=== PATIENT | male | born 1960 ===

== ENCOUNTER 2025-05-13 16:49 | Outpatient (CLI) | payer OTHER, SELFPAY ==
--- NOTE | ~2025-05-13 | CT_ITS ---
EXAMINATION: CT brain wo con DATE: 05/13/2025 17:05 INDICATION: Follow-up hemorrhagic conversion TECHNIQUE: Computed tomography (CT) of the head was performed without intravenous contrast. The dose-length product was 756.67 mGy-cm. Automated exposure control and iterative reconstruction technique were employed. COMPARISON: None FINDINGS: There is a large area of hypodensity with a geographic appearance in the right hemisphere particularly the right parietal and temporal lobes, most likely acute/subacute infarction. There is associated mass effect with midline shift measuring approximately 2 mm. There are multiple focal areas of hyperdensity consistent with associated parenchymal hemorrhage. No prior studies are available for comparison to assess for change. No ventriculomegaly. Basilar cisterns are patent. Paranasal sinuses and mastoids are pneumatized. No depressed skull fractures. IMPRESSION: 1. Large geographic area of hypodensity in the right middle cerebral artery distribution, most likely acute/subacute infarction with associated multifocal parenchymal hemorrhage. Mass effect on the surrounding parenchyma due to vasogenic edema with midline shift to the left measuring [address] Jesus Leach discussed with Monik Lara from the rehabilitation Center at [facility] at 05/13/2025 17:30 GLOBAL CLINICAL LEADER. Reviewed, dictated and finalized at location I. [place] CLINICAL LEADER IMPRESSION: 1. Large geographic area of hypodensity in the right middle cerebral artery dis tribution, most likely acute/subacute infarction with associated multifocal par enchymal hemorrhage. Mass effect on the surrounding parenchyma due to vasogenic edema with midline shift to the left measuring [address] Jesus Leach discussed with Monik Lara from the rehabilitation Center at [facility] at 05/13/2025 17:30 GLOBAL CLINICAL LEADER.
--- OUTSIDE RECORDS SUMMARY | 2025-05-13 16:52 | XMS_ITS | Clinical Summary ---
Author Organization [facility] Address [address] [place] [address] Care Team Providers Care Color Room Attendant Name Role Phone MekhiDavid Sara Primary Care Provider [phone] Source Comments [facility],non-owned Affiliates and Associated Physician Practices is amultiple site organization consisting of ambulatory clinics and hospital sitesin [place], [place], [place] and [place]. This disclosure is being madepursuant to the Care Everywhere program and may not contain all information available regarding this patient. Last updated 18.[facility] Allergies No known active allergies Medications * Be aware that medications may not be up to date on this document. Alwaysverify current medications with the patient. lisinopril-hydr oCHLOROthiazide (Prinzide; Zestoretic) 10-12.5 MG tablet Take 1 (one) tablet by mouth once daily Active aspirin (Aspirin) 81 MG chew tablet Take 1 (one) tablet by mouth once daily (chew and swallow) 05/02/2025 Active atorvastatin (Lipitor) 40 MG tablet Take 1 (one) tablet by mouth at bedtime 05/02/2025 Active folic acid (Folvite) 1 MG tablet Take 1 (one) tablet by mouth once daily 05/02/2025 Active nicotine (Nicoderm CQ) 14 MG/24HR patchIndication s:Acute ischemic stroke (HCC) Apply 1 (one) patch to skin once daily 05/03/2025 Active multiple vitamins with minerals tablet Take 1 (one) tablet by mouth once daily 05/02/2025 Active thiamine (Vitamin B-1) 100 MG tablet Take 1 (one) tablet by mouth once daily 05/02/2025 Active Active Problems Problem Noted Date Diagnosed Date Fall against object 05/01/2025 Acute ischemic stroke 04/27/2025 Encounters Date Type Department Care Team Description 05/11/2025 12:15 PM HEALTH PROFESSOR Clinical Support [facility] [address], [address] [place] [address] Acute ischemic stroke (HCC) ; Bradycardia; Encounter for loop recorder check 05/02/2025 12:00 PM HEALTH PROFESSOR - 05/02/2025 1:00 PM HEALTH PROFESSOR Surgery Counts include 234 beds at the [facility] - Cardiac Wireless Team Member [address] [place] [address] Taiwo Salmon MD Loop Recorder Implant 05/02/2025 Orders Only [facility] [address], [address] [place] [address] Taiwo Salmon MD Encounter for loop recorder check ; Acute ischemic stroke (HCC); Bradycardia 04/27/2025 7:34 PM HEALTH PROFESSOR - 05/03/2025 11:27 PM HEALTH PROFESSOR Hospital Encounter [facility] 7S TELE/NEURO [address] [place] [address] Stanton Sutton MD Alshekhlee, Amer, MD Neurology Discharge Disposition: Rehab:Inpatient 04/27/2025 Travel from Last 3 Months Social History Tobacco Use Types Packs/Day Years Used Date Smoking Tobacco: Every Day Cigarettes 0.5 41.9 Started: 1983 Smokeless Tobacco: Never Tobacco Cessation:Ready to Q uit: Not Asked; Counseling Given: Not Answered Alcohol Use Standard Drinks/Week Comments Yes 20 (1 standard drink = 0.6 oz pu re alcohol) PHQ-2 Answer Date Recorded Patient Health Questionnaire-2 Score 0 05/02/2025 AUDIT-C Answer Date Recorded Q1: How often do you have a drink containing alcohol? 4 or more times a week 04/27/2025 Q2: How many drinks containi ng alcohol do you have on a typical day when you are drinking? 5 or 6 Q3: How often do you have si x or more drinks on one occasion? Daily or almost daily 04/27/2025 Overall Financial Resource Strain (CARDIA) Answe r Date Recorded How hard is it for you to pa y for the very basics like food, housing, medical care, and heating? Not very hard 04/27/2025 [facility] Occupat ional Health - Occupational Stress Questionnaire Answer Date Recorded Do you feel stress - tense, restless, nervous, or anxious, or unable to sleep at night because your mind is troubled all the time - these days? Not at all 04/27/2025 Hunger Vital Sign Answer Date Recorded Within the past 12 months, y ou worried that your food would run out before you got the money to buy more. Never true 04/27/20 25 Within the past 12 months, t he food you bought just didn't last and you didn't have money to get more. Never true 04/27/2025 PRAPARE - Transportation Answer Date Re corded In the past 12 months, has l ack of transportation kept you from medical appointments or from getting medications? No 04/09 In the past 12 months, has l ack of transportation kept you from meetings, work, or from getting things needed for daily living? No 04/27/2025 Housing Stability Vital Sign Answer Tyler e Recorded In the last 12 months, was t here a time when you were not able to pay the mortgage or rent on time? No 04/27/2025 In the past 12 months, how m any times have you moved where you were living? 2 04/27/2025 At any time in the past 12 m [facility], were you homeless or living in a senior living (including now)? No 04/27/2025 Sex and Gender Information Value Date Recorded Sex Assigned at Not on file Legal Sex Male 5:31 PM HEALTH PROFESSOR Gender Identity Not on file Sexual Orientation Not on file Last Filed Vital Signs Vital Sign Reading Time Taken Comments Blood Pressure 136/74 05/03/2025 9:34 PM HEALTH PROFESSOR Pulse 53 05/03/2025 9:34 PM HEALTH PROFESSOR Temperature 36.8 C (98.2 F) 05/03/2025 9:34 PM HEALTH PROFESSOR Respiratory Rate 16 05/03/2025 9:34 PM HEALTH PROFESSOR Oxygen Saturation 95% 05/03/2025 9:34 PM HEALTH PROFESSOR Inhaled Oxygen Concentration - - Weight 81.5 kg (179 lb 10.8 oz) 04/28/2025 1:18 AM HEALTH PROFESSOR Height 172.7 cm (5' 8) 04/27/2025 8:00 PM HEALTH PROFESSOR Body Mass Index 27.32 04/27/2025 8:00 PM HEALTH PROFESSOR Plan of Treatment Upcoming Encounters Date Type Department Care Team (Late st Contact Info) Description 05/19/2025 11:30 AM HEALTH PROFESSOR Office Visit [facility] [address], [address] [place] [address] [place] [address] [place] [address] 05/19/2025 12:00 PM HEALTH PROFESSOR Clinical Support [facility] [address], [address] [place] [address] [place] [address] [place] [address] 07/01/2025 11:00 AM HEALTH PROFESSOR Office Visit [facility] [address] [place] [id number] Health Maintenance Due Date Last Done Comments COLOGUARD (AGES 45-75) - COLON CA SCREENING 1961 COLON MONITORING 1961 COLONOSCOPY - COLON CA SCREENING 1961 CT COLONOGRAPHY - COLON CA SCREENING 1961 Colorectal Cancer Screening 1961 FIT - COLON CA SCREENING 1961 FLEX SIG - COLON CA SCREENING 1961 HIV SCREENING 1976 HEPATITIS C SCREENING 03/02/1979 DTAP/TDAP/TD VACCINES (1 - Tdap) 1980 PNEUMOCOCCAL VACCINE 50+ (1 of 2 - PCV) 1980 LUNG CANCER SCREENING 2011 Respiratory Syncytial Virus (RSV) Vaccine Pt: or over 60 yrs (1 - Risk 50-74 years 1-dose series) 2011 ZOSTER VACCINE (1 of 2) 2011 COVID-19 VACCINE (1 - 2024- season) 2025 INFLUENZA VACCINE (#1) 2025 SCREENING FOR DIABETES 05/03/2028 , 05/03/2025, 05/02/2025, Additional history exists DEPRESSION SCREENING Completed 05/11/2025 HEPATITIS B VACCINE Aged Out No longe r eligible based on patient's age to complete this topic HIB VACCINE Aged Out No longer eligi ble based on patient's age to complete this topic HPV VACCINE Aged Out No longer eligi ble based on patient's age to complete this topic MENINGOCOCCAL (Group B) VACCINE SHARED DECISION-MAKING Aged Out No longer eligible based on patient's age to complete this topic MENINGOCOCCAL GROUPS A/C/Y/W VACCINE Aged Out No longer eligible based on patient's age to complete this topic Medical Devices Implanted Type Area Junior Staff Accountant Device Identifier Shelf Expiration Date Model / Serial / Lot Rcdr Crd Linq Ii Ins Implanted:Qty: 1 on 05/02/2025 by Taiwo Salmon MD at [facility] [employer] [id number] 07/31/2026 [id number] / [id number] / NA Procedures Procedure Name Priority Date/Time Associated Diagnosis Comments ILR CLINIC CHECK Routine 05/11/2025 12:3 4 PM HEALTH PROFESSOR Acute ischemic stroke (HCC) Bradycardia Encounter for loop recorder check CARDIAC EKG ORDER 05/04/2025 8:4 5 PM HEALTH PROFESSOR CARDIAC RHYTHM STRIP ORDER 05/04/2025 8:35 PM HEALTH PROFESSOR GLUCOSE - POINT OF CARE Routine 05/03/2025 11:56 AM HEALTH PROFESSOR MAGNESIUM BLOOD AM Draw 05/03/2025 3:14 AM HEALTH PROFESSOR BASIC METABOLIC PANEL (CALCIUM TOTAL) AM Draw 05/03/2025 3:14 AM HEALTH PROFESSOR CCL LOOP RECORDER IMPLANT Routine 05/02/2025 12:16 PM HEALTH PROFESSOR HEPATIC FUNCTION PANEL Add on 05/02/2025 1:11 AM HEALTH PROFESSOR MAGNESIUM BLOOD AM Draw 05/02/2025 1:11 AM HEALTH PROFESSOR BASIC METABOLIC PANEL (CALCIUM TOTAL) AM Draw 05/02/2025 1:[address] CERVICAL SPINE WO CONTRAST STAT 05/01/2025 8:11 PM HEALTH PROFESSOR Fall against object CT HEAD WO CONTRAST STAT 05/01/2025 8 :05 PM HEALTH PROFESSOR Fall against object GLUCOSE - POINT OF CARE Routine 05/01/2025 7:44 PM HEALTH PROFESSOR GLUCOSE - POINT OF CARE Routine 05/01/2025 5:44 PM HEALTH PROFESSOR GLUCOSE - POINT OF CARE Routine 05/01/2025 11:49 AM HEALTH PROFESSOR GLUCOSE - POINT OF CARE Routine 05/01/2025 6:18 AM HEALTH PROFESSOR MAGNESIUM BLOOD AM Draw 05/01/2025 1:16 AM HEALTH PROFESSOR BASIC METABOLIC PANEL (CALCIUM TOTAL) AM Draw 05/01/2025 1:16 AM HEALTH PROFESSOR GLUCOSE - POINT OF CARE Routine 04/30/2025 4:51 PM HEALTH PROFESSOR GLUCOSE - POINT OF CARE Routine 04/30/2025 12:05 PM HEALTH PROFESSOR GLUCOSE - POINT OF CARE Routine 04/30/2025 7:55 AM HEALTH PROFESSOR CK BLOOD Routine 04/30/2025 5:10 AM HEALTH PROFESSOR MAGNESIUM BLOOD AM Draw 04/30/2025 5:10 AM HEALTH PROFESSOR BASIC METABOLIC PANEL (CALCIUM TOTAL) AM Draw 04/30/2025 5:10 AM HEALTH PROFESSOR GLUCOSE - POINT OF CARE Routine 04/29/2025 8:00 PM HEALTH PROFESSOR GLUCOSE - POINT OF CARE Routine 04/29/2025 5:49 PM HEALTH PROFESSOR GLUCOSE - POINT OF CARE Routine 04/29/2025 12:19 PM HEALTH PROFESSOR GLUCOSE - POINT OF CARE Routine 04/29/2025 8:29 AM HEALTH PROFESSOR MAGNESIUM BLOOD AM Draw 04/29/2025 3:58 AM HEALTH PROFESSOR TSH REFLEX FREE T4 Routine 04/29/2025 3: 58 AM HEALTH PROFESSOR BASIC METABOLIC PANEL (CALCIUM TOTAL) AM Draw 04/29/2025 3:58 AM HEALTH PROFESSOR GLUCOSE - POINT OF CARE Routine 04/28/2025 8:09 PM HEALTH PROFESSOR GLUCOSE - POINT OF CARE Routine 04/28/2025 5:30 PM HEALTH PROFESSOR FL SWALLOWING FUNCTION STUDY Routine 04/28/2025 1:54 PM HEALTH PROFESSOR Oropharyngeal dysphagia GLUCOSE - POINT OF CARE Routine 04/28/2025 11:53 AM HEALTH PROFESSOR ECHO COMPLETE W BUBBLE STUDY STAT 04/28/2025 10:55 AM HEALTH PROFESSOR Acute ischemic stroke (HCC) EKG 12-LEAD Routine 04/28/2025 9:18 AM HEALTH PROFESSOR Acute ischemic stroke (HCC) GLUCOSE - POINT OF CARE Routine 04/28/2025 8:[address] HEAD WO CONTRAST Routine 04/28/2025 4 :00 AM HEALTH PROFESSOR Acute ischemic stroke (HCC) CK BLOOD Add on 04/28/2025 12:21 AM HEALTH PROFESSOR LIPID PROFILE AM Draw 04/28/2025 12:21 AM HEALTH PROFESSOR BASIC METABOLIC PANEL (CALCIUM TOTAL) AM Draw 04/28/2025 12:21 AM HEALTH PROFESSOR CBC W AUTO DIFFERENTIAL Add on 04/27/2025 9:39 PM HEALTH PROFESSOR TROPONIN-I HIGH SENSITIVE REFLEX 1HOUR Timed 04/27/2025 9:39 PM HEALTH PROFESSOR HEMOGLOBIN A1C Add on 04/27/2025 9:39 PM HEALTH PROFESSOR TROPONIN-I HIGH SENSITIVE BASELINE + 1HR STAT 04/27/2025 8:15 PM HEALTH PROFESSOR from Last 3 Months Results * CARDIAC EKG ORDER (05/04/2025 8:45 PM HEALTH PROFESSOR) Narrative 05/04/2025 8:45 PM HEALTH PROFESSOR Ordered by an unspecified provider. us Scanned Document CARDIAC SERVICES ORDERABLES Fin al Result * CARDIAC RHYTHM STRIP ORDER (05/04/2025 8:35 PM HEALTH PROFESSOR) Narrative 05/04/2025 8:35 PM HEALTH PROFESSOR Ordered by an unspecified provider. us Scanned Document CARDIAC SERVICES ORDERABLES Fin al Result * (ABNORMAL) GLUCOSE - POINT OF CARE (05/03/2025 11:56 AM HEALTH PROFESSOR) Only the most recent of16 resultswithin the time period is included. Glucose WB/POC 125(H) 70 - 99 mg/dL 05/03/2025 12:01 PM HEALTH PROFESSOR [facility] Specimen Type Arterial/C apillary 05/03/2025 12:01 PM HEALTH PROFESSOR [facility] Blood BLOOD SPECIMEN / Unknown 05/03/2025 11:56 AM HEALTH PROFESSOR 05/03/2025 12:01 PM HEALTH PROFESSOR us Marilou Bianchi MD LAB - POINT OF CARE ORDERABLE S Final Result [facility] [address] [place] [address] * (ABNORMAL) BASIC METABOLIC PANEL (CALCIUM TOTAL) (05/03/2025 3:14 AM HEALTH PROFESSOR) Only the most recent of6 resultswithin the time period is included. Glucose 107(H) 70 - 99 mg/dL 05/03/2025 4:44 AM HEALTH PROFESSOR [facility] Sodium 136 136 - 145 mmol/L 05/03/2025 4:44 AM HEALTH PROFESSOR [facility] Potassium 4.5 3.5 - 5.1 mmol/L 05/03/2025 4:44 AM [facility] Chloride 106 98 - 107 mmol/L 05/03/2025 4:44 AM [facility] CO2 23 22 - 29 mmol/L 05/03/2025 4:44 AM [facility] Calcium 8.8 8.4 - 10.4 mg/dL 05/03/2025 4:44 AM [facility] Anion Gap 7 6 - 16 mmol/L 05/03/2025 4:44 AM [facility] BUN 19 7 - 26 mg/dL 05/03/2025 4:44 AM [facility] Creatinine 0.83 0.70 - 1.30 mg/dL 05/03/2025 4:44 AM [facility] eGFR by CKD-EPI >90 >=90 mL/min/1.7 3 m2 05/03/2025 4:44 AM [facility] Comment:Estimated Glomerular Filtration Rate (eGFR) calculated using the CKD-EPI Creatinine Equation (2020), per the National Kidney Foundation and [employer] Nephrology recommendations. Blood BLOOD SPECIMEN / Unknown Venipuncture / Unknown 05/03/2025 3:14 AM HEALTH PROFESSOR 05/03/2025 3:22 AM HEALTH PROFESSOR Stanton Sutton MD LAB - CHEMISTRY ORDERABLES F inal Result Performing Organization Address [facility]/ZIP Co de Phone Number [facility] [address] [place] [address] * MAGNESIUM BLOOD (05/03/2025 3:14 AM HEALTH PROFESSOR) Only the most recent of5 resultswithin the time period is included. Magnesium 2.3 1.6 - 2.6 mg/dL 05/03/2025 4:44 AM [facility] Blood BLOOD SPECIMEN / Unknown Venipuncture / Unknown 05/03/2025 3:14 AM HEALTH PROFESSOR 05/03/2025 3:22 AM HEALTH PROFESSOR Karyna Shi APRN-AIR SAW OPERATOR LAB - CHEMISTRY ORDERABLE S Final Result Performing Organization Address City/[facility] Co de Phone Number [facility] [address] [place] [address] * (ABNORMAL) HEPATIC FUNCTION PANEL (05/02/2025 1:11 AM HEALTH PROFESSOR) Alkaline Phosphatase 56 40 - 150 U/L 05/02/2025 3:32 PM HEALTH PROFESSOR [facility] ALT 17 6 - 57 U/L 05/02/2025 3:32 PM HEALTH PROFESSOR [facility] AST 25 10 - 48 U/L 05/02/2025 3:32 PM HEALTH PROFESSOR [facility] Protein Total 5.7(L) 6.4 - 8.3 gm/dL 05/02/2025 3:32 PM HEALTH PROFESSOR [facility] Albumin 3.4 3.1 - 4.5 gm/dL 05/02/2025 3:32 PM HEALTH PROFESSOR [facility] Bilirubin Total 0.4 0.2 - 1.2 mg/dL 05/02/2025 3:32 PM HEALTH PROFESSOR [facility] Bilirubin Direct 0.144 0.10 - 0.50 mg/dL 05/02/2025 3:32 PM HEALTH PROFESSOR [facility] Blood BLOOD SPECIMEN / Unknown Venipuncture / Unknown 05/02/2025 1:11 AM HEALTH PROFESSOR 05/02/2025 1:20 AM HEALTH PROFESSOR Arely Costa BATH STEWARD/STEWARDESS-AIR SAW OPERATOR LAB - CHEMISTRY ORDERAB LES Final Result Performing Organization Address [facility] Co de Phone Number [facility] [id number] [place] [id number] * CT CERVICAL SPINE NON CONTRAST (05/01/2025 8:11 PM HEALTH PROFESSOR) Anatomical Region Laterality Modality Spine Computed Tomogra phy 05/02/2025 6:51 AM HEALTH PROFESSOR Impressions 05/02/2025 6:54 AM HEALTH PROFESSOR IMPRESSION: 1. NO EVIDENCE OF CERVICAL SPINE FRACTURE/DISLOCATION. 2. WHAT LIKELY REPRESENTS A NONUNITED OSSIFICATION CENTER THE POSTERIOR SEE 5 SPINOUS PROCESS IS NOTED. 3. LEFT C3-C4 NEURAL FORAMINAL NARROWING. 4. CAROTID ATHEROSCLEROSIS. 5. A PRELIMINARY REPORT WAS GIVEN BY BRITNI GUERRERO AT THE TIME OF THE EXAMINATION'S COMPLETION. > Interpreting Provider: Be Lopez MD on 05/02/2025 6:54 AM Narrative 05/02/2025 6:54 AM HEALTH PROFESSOR PROCEDURE: CT CERVICAL SPINE WO CONTRAST, DATE/TIME OF EXAM: 05/01/2025 8:14 PM, LOCATION [facility] INDICATION: W18.00XA: Fall against object ADDITIONAL CLINICAL INFORMATION: Ordering Provider Reason For Exam: Technologist Note: Additional: COMPARISON: Images from a modified barium video swallow. CT CERVICAL SPINE WITH CORONAL AND SAGITTAL RECONSTRUCTIONS INDICATION: 65 year old Male with head and neck pain after falling. Cerebrovascular accident involving the right MCA distribution.. TECHNIQUE: Thin section axial images were made from the midbrain to the upper thoracic spine. Sagittal and coronal reconstructions were made at the work station. CT dose reduction technique was used, including Automated Exposure Control. FINDINGS: I do not see a definite fracture. 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 There are calcifications in the nuchal ligament. Vertebral body and interbody disc space heights are maintained. Degenerative changes are seen at C3-C4, with moderate narrowing of the left neural foramen. Degenerative changes are also seen at C6-C7. I do not see any spinal stenosis. There are atherosclerotic calcifications in the carotid arteries. No other paravertebral soft tissue changes are seen. There is significant cerumen in both external auditory canals. Procedure Note Be Lopez MD - 05/02/2025 PROCEDURE: CT CERVICAL SPINE WO CONTRAST, DATE/TIME OF EXAM:05/01/2025 8:14 PM, LOCATION [facility] INDICATION: W18.00XA: Fall against object ADDITIONAL CLINICAL INFORMATION: Ordering Provider Reason For Exam: Technologist Note: Additional: COMPARISON: Images from a modified barium video swallow. CT CERVICAL SPINE WITH CORONAL AND SAGITTAL RECONSTRUCTIONS INDICATION: 65 year old Male with head and neck pain after falling. Cerebrovascular accident involving the right MCA distribution.. TECHNIQUE: Thin section axial images were made from the midbrain to the upper thoracic spine. Sagittal and coronal reconstructions were made atthe work station. CT dose reduction technique was used, including Automated Exposure Control. FINDINGS: I do not see a definite fracture. What is more likely anonunited ossification center of the spinous process of C5 is noted. There are calcifications in the nuchal ligament. Vertebral body and interbody disc space heights are maintained. Degenerative changes are seen at C3-C4, with moderate narrowing of theleft neural foramen. Degenerative changes are also seen at C6-C7. I do not see any spinal stenosis. There are atheroscleroticcalcifications in the carotid arteries. No other paravertebral soft tissue changes are seen. There is significant cerumen in both external auditory canals. IMPRESSION: 1. NO EVIDENCE OF CERVICAL SPINE FRACTURE/DISLOCATION. 2. WHAT LIKELY REPRESENTS A NONUNITED OSSIFICATION CENTER THE POSTERIORSEE 5 SPINOUS PROCESS IS NOTED. 3. LEFT C3-C4 NEURAL FORAMINAL NARROWING. 4. CAROTID ATHEROSCLEROSIS. 5. A PRELIMINARY REPORT WAS GIVEN BY BRITNI GUERRERO AT THE TIME OF THE EXAMINATION'S COMPLETION. > Interpreting Provider: Be Lopez MD on 05/02/2025 6:54 AM us Stanton Sutton MD CT ORDERABLES Final Result * CT Head Wo Contrast (05/01/2025 8:05 PM HEALTH PROFESSOR) Only the most recent of2 resultswithin the time period is included. Anatomical Region Laterality Modality Head Computed Tomogra phy 05/02/2025 6:41 AM HEALTH PROFESSOR Impressions 05/02/2025 6:47 AM HEALTH PROFESSOR IMPRESSION: 1. PROGRESSION OF ISCHEMIC CHANGES IN THE RIGHT FRONTAL, TEMPORAL AND PARIETAL LOBES. 2. PROMINENT WHAT APPEARS TO BE SOME HEMORRHAGIC CHANGE IN THE RIGHT BASAL GANGLIA. 3. RIGHT-SIDED CEREBRAL EDEMA AND 4.8 MM LEFTWARD SHIFT OF THE MIDLINE STRUCTURES. 4. A PRELIMINARY REPORT WAS GIVEN BY BRITNI GUERRERO AT THE TIME OF THE EXAMINATION'S COMPLETION. > Interpreting Provider: Be Lopez MD on 05/02/2025 6:47 AM Narrative 05/02/2025 6:47 AM HEALTH PROFESSOR PROCEDURE: CT HEAD WO CONTRAST, DATE/TIME OF EXAM: 05/01/2025 8:14 PM, LOCATION [facility] INDICATION: W18.00XA: Fall against object ADDITIONAL CLINICAL INFORMATION: Ordering Provider Reason For Exam: Technologist Note: Additional: COMPARISON: None. CT BRAIN INDICATION: 65 year old Male with cerebrovascular accident, fell onto the floor, reporting that he struck his head on the chair. TECHNIQUE: Unenhanced axial images were made from the skull base to the cranial vertex. One or more of the following CT dose reduction techniques were utilized: - Automated exposure control (AEC) - Adjustment of mA and/or kV, according to the patient's size - use of iterative reconstruction technique - CT scan done according to ALARA or ALARA/IMAGE GENTLY FINDINGS: Comparison is made to the 04/28/2025 CT examination. There has been progression of low-attenuation changes in the right posterior frontal, anterior temporal and right parietal lobes, in the distribution of the right middle cerebral artery ischemic event. Areas of higher attenuation are seen in the right basal ganglia, suggesting small areas of focal hemorrhage. There possibly may be a small amount of blood within the right lateral ventricle, versus extrinsic impression from the basal ganglia.. There is mass effect upon the right lateral ventricle. There is 4.8 mm leftward shift of the midline structures. I do not see any other areas of hemorrhage.. There are no extra-axial fluid collections. The paranasal sinuses included in the study minimal mucosal thickening in the anterior right maxillary sinus.. No specific bony abnormalities are seen. Procedure Note Be Lopez MD - 05/02/2025 PROCEDURE: CT HEAD WO CONTRAST, DATE/TIME OF EXAM: 05/01/2025 8:14 PM, LOCATION [facility] INDICATION: W18.00XA: Fall against object ADDITIONAL CLINICAL INFORMATION: Ordering Provider Reason For Exam: Technologist Note: Additional: COMPARISON: None. CT BRAIN INDICATION: 65 year old Male with cerebrovascular accident, fell ontothe floor, reporting that he struck his head on the chair. TECHNIQUE: Unenhanced axial images were made from the skull base to the cranial vertex. One or more of the following CT dose reduction techniques were utilized: - Automated exposure control (AEC) - Adjustment of mA and/or kV, according to the patient's size - use of iterative reconstruction technique - CT scan done according to ALARA or ALARA/IMAGE GENTLY FINDINGS: Comparison is made to the 04/28/2025 CT examination. There has been progression of low-attenuation changes in the right posteriorfrontal, anterior temporal and right parietal lobes, in the distribution of the right middle cerebral artery ischemic event. Areas of higher attenuation are seen in the right basal ganglia, suggesting small areas of focal hemorrhage. There possibly may be a small amount of blood within theright lateral ventricle, versus extrinsic impression from the basal ganglia.. There is mass effect upon the right lateral ventricle. There is 4.8 mm leftward shift of the midline structures. I do not see any other areasof hemorrhage.. There are no extra-axial fluid collections. The paranasal sinusesincluded in the study minimal mucosal thickening in the anterior right maxillary sinus.. No specific bony abnormalities are seen. IMPRESSION: 1. PROGRESSION OF ISCHEMIC CHANGES IN THE RIGHT FRONTAL, TEMPORAL AND PARIETAL LOBES. 2. PROMINENT WHAT APPEARS TO BE SOME HEMORRHAGIC CHANGE IN THE RIGHTBASAL GANGLIA. 3. RIGHT-SIDED CEREBRAL EDEMA AND 4.8 MM [facility]UCTURES. 4. A PRELIMINARY REPORT WAS GIVEN BY BRITNI GUERRERO AT THE TIME OF THE EXAMINATION'S COMPLETION. > Interpreting Provider: Be Lopez MD on 05/02/2025 6:47 AM [address] Sutton MD CT ORDERABLES Final Result * CK BLOOD (04/30/2025 5:10 AM HEALTH PROFESSOR) Only the most recent of2 resultswithin the time period is included. CK 110 30 - 200 U/L 04/30/2025 5:56 AM HEALTH PROFESSOR [facility] Blood BLOOD SPECIMEN / Unknown Venipuncture / Unknown 04/30/2025 5:10 AM HEALTH PROFESSOR 04/30/2025 5:27 AM HEALTH PROFESSOR Nadya Hobbs BATH STEWARD/STEWARDESS-AIR SAW OPERATOR LAB - CHEMISTRY ORDERAB LES Final Result [facility] [address] [place] [address] * TSH REFLEX FREE T4 (04/29/2025 3:58 AM HEALTH PROFESSOR) TSH 1.506 0.350 - 4.940 uIU/mL 04/29/2025 5:08 AM HEALTH PROFESSOR [facility] Blood BLOOD SPECIMEN / Unknown Venipuncture / Unknown 04/29/2025 3:58 AM HEALTH PROFESSOR 04/29/2025 4:03 AM HEALTH PROFESSOR Karyna Shi APRN-AIR SAW OPERATOR LAB - CHEMISTRY ORDERABLE S Final Result [facility] [address] [place] [address] * FL SWALLOWING FUNCTION STUDY (04/28/2025 1:54 PM HEALTH PROFESSOR) Anatomical Region Laterality Modality Chest Computed Radiogr aphy 04/28/2025 2:01 PM HEALTH PROFESSOR Narrative 04/28/2025 2:04 PM HEALTH PROFESSOR PROCEDURE: FL SWALLOWING FUNCTION STUDY, DATE/TIME OF EXAM: 04/28/2025 1:55 PM, LOCATION [facility] INDICATION: R13.12: Oropharyngeal dysphagia ADDITIONAL CLINICAL INFORMATION: Ordering Provider Reason For Exam: Technologist Note: Additional: COMPARISON None. INDICATION: Dysphagia TECHNIQUE: A series of thin and thick liquids and solids were ingested. Cine images were performed. Dose: 0.88 mGy reference Air Kerma FINDINGS: Aspiration down the posterior tracheal within liquids with a drink from a straw.. Total fluoro time is 64 seconds . A full report is to follow from speech therapy. > Interpreting Provider: Garrett Salmeron MD on 04/28/2025 2:04 PM Procedure Note Garrett Salmeron MD - 04/28/2025 PROCEDURE: FL SWALLOWING FUNCTION STUDY, DATE/TIME OF EXAM: 04/28/2025 1:55 PM, LOCATION [facility] INDICATION: R13.12: Oropharyngeal dysphagia ADDITIONAL CLINICAL INFORMATION: Ordering Provider Reason For Exam: Technologist Note: Additional: COMPARISON None. INDICATION: Dysphagia TECHNIQUE: A series of thin and thick liquids and solids were ingested. Cine images were performed. Dose: 0.88 mGy reference Air Kerma FINDINGS: Aspiration down the posterior tracheal within liquids with a drink from a straw.. Total fluoro time is 64 seconds . A full report isto follow from speech therapy. > Interpreting Provider: Garrett Salmeron MD on 04/28/2025 2:04 PM us Stanton Sutton MD FLUOROSCOPY ORDERABLES Final Result * ECHO COMPLETE W BUBBLE STUDY (04/28/2025 10:55 AM HEALTH PROFESSOR) IVSd 2D 1.092 cm [facility] CV FUJ I PACS LVIDd 5.414 cm [facility] CV [facility] I PACS LVIDs 3.388 cm [facility] CV FUJ I PACS LVOT diam 2.041 cm [facility] CV FUJ I PACS LVPWd 1.139 cm [facility] CV FUJ I PACS LV biplane EF 62.858 % [facility] CV FUJI PACS LV A2C EF 61.952 % [facility] CV FUJ I PACS LV A4C EF 62.099 % [facility] CV FUJ I PACS LV EDV A2C 87.41 ml [facility] CV FU JI PACS LV EDV A4C 84.049 ml [facility] CV FU JI PACS LV ESV A2C 33.258 ml [facility] CV FU JI PACS LV ESV A4C 31.855 ml [facility] CV FU JI PACS LVOT pk grad 4.703 mmHg [facility] LVOT pk erich 108.432 cm/s [facility] CV F U PACS LVOT VTI 22.899 cm [facility] CV [facility] I PACS LA size 4.206 cm [facility] CV [facility] I PACS LA vol BP 54.75 ml [facility] CV [facility] I PACS AV area pk erich 2.2 cm2 [facility] area cont VTI 2.264 cm2 [facility] AV pk grad 10.394 mmHg [facility] CV FU JI PACS AV mn grad 4.855 mmHg [facility] CV FU JI PACS AV pk erich 161.201 cm/s [facility] CV [facility] I PACS AV VTI 33.074 cm [facility] CV [facility] I PACS MV A pk erich 43.649 cm/s [facility] CV F UJI PACS MV E pk erich 78.972 cm/s S[facility] CV F UJI PACS MV E' lateral erich 19.168 cm/s SS M [facility] PV pk erich 106.37 cm/s [facility] CV [facility] I PACS TAPSE 2.162 cm [facility] CV [facility] I PACS TR pk erich 254.869 cm/s [facility] CV [facility] I PACS AV area index 1.138 cm2/m2 S[facility] CV FUJI PACS LA vol index 0.028 l/m2 [facility] Dimensionless Index 0.692 unitless SSM CV FUJI PACS Myocardial strain charge 2 unitless SS CV FUJI PACS Anatomical Region Laterality Modality Ultrasound 04/28/2025 9:26 AM HEALTH PROFESSOR Narrative 04/28/2025 1:08 PM HEALTH PROFESSOR Summary * The left ventricle is normal in size with normal systolic function and an estimated ejection fraction of 55-60% by visual estimate. Left ventricular wall motion is normal. * The left ventricular diastolic function is normal. * Right ventricle is at the upper limits of normal in size with normal systolic function. * There is mild aortic valve regurgitation. * The pulmonary artery systolic pressure is normal, 25 mmHg. * Agitated saline contrast study at rest and with Valsalva is negative for a shunt. Patient Info Name: Alexander Holguin Age: 65 years : 1960 Gender: Male Ht: 68 in Wt: 179 lb BSA: 1.99 m2 HR: 43 bpm BP: 139 / 70 mmHg Exam Date: 04/28/2025 9:26 AM Patient Status: I/P Study Site: [facility] Primary Location: [facility] EStudy Info Exam Type: ECHO COMPLETE W BUBBLE STUDY Indications I63.9 - Acute ischemic stroke (HCC) Procedure(s) * A complete 2D, color Doppler, spectral Doppler and M-Mode transthoracic echocardiogram was performed with a Bubble Study. Staff Referring Physician: Nadya Hobbs Ordering Provider: Nadya Hobbs Attending Physician: Nadya Hobbs Infrastructure Consultant: Manda Martel Left Ventricle The left ventricle is normal in size. Left ventricular systolic function is normal with an estimated ejection fraction of 55-60% by visual estimate. The left ventricular mass is normal. Left ventricular segmental wall motion is normal. The left ventricular diastolic function is normal. Right Ventricle The right ventricle is at the upper limits of normal in size. Right ventricular systolic function is normal. Left Atrium The left atrium is normal in size with a left atrial volume index of 28 ml/m2 by BP MOD. Right Atrium The right atrium is mildly dilated. Atrial Septum Intact interatrial septum visualized by 2D and color Doppler imaging. Agitated saline contrast study at rest and with Valsalva is negative for a shunt. Aortic Valve The aortic valve is trileaflet. There is no aortic valve stenosis. There is mild aortic valve regurgitation. Pulmonic Valve The pulmonic valve is normal. There is no pulmonic valve stenosis. There is no pulmonic regurgitation. Mitral Valve The mitral valve is normal. There is no mitral valve stenosis. There is no mitral valve regurgitation. Tricuspid Valve The tricuspid valve is normal. There is trace tricuspid valve regurgitation. The pulmonary artery systolic pressure is normal, 25 mmHg. Inferior Vena Cava The inferior vena cava is normal in size (< 2.1 cm). Pericardium/Pleural There is no pericardial effusion. Aorta The aortic root at the sinus of Valsalva is normal in size. The ascending aorta is normal in size. Measurements Left Ventricular Outflow Tract Name Value Normal LVOT 2D LVOT Diameter 2.0 cm LVOT Area 3.3 cm2 LVOT Doppler LVOT Peak Velocity 1.1 m/s LVOT Peak Gradient 5 mmHg LVOT Mean Velocity 66.85 cm/s LVOT Mean Gradient 2 mmHg LVOT VTI 22.9 cm LVOT VTI/AV VTI Ratio 0.7 LVOT Stroke Volume 75 ml LVOT Stroke Volume Index 38 ml/m2 35-58 LVOT CO 3.2 l/min LVOT CI 1.6 l/min/m2 Pulmonic Valve Name Value Normal PV Doppler PV Peak Velocity 1.1 m/s PV Peak Gradient 5 mmHg Mitral Valve Name Value Normal MV Doppler MV PHT 51 ms MV Area (PHT) 4.31 cm2 4.00-5.00 MV Diastolic Function MV E Peak Velocity 0.8 m/sec MV A Peak Velocity 0.4 m/sec MV E/A 1.8 MV Decel Time (PW) 176 ms MV Annular TDI MV Septal e' Velocity 10 cm/s >=8 MV E/e' (Septal) 8 <=8 MV Lateral e' Velocity 19 cm/s >=10 MV E/e' (Lateral) 4 <=8 MV e' Average 14 cm/s MV E/e' (Average) 6 Tricuspid Valve Name Value Normal TV Regurgitation Doppler TR Peak Velocity 2.5 m/s TR Peak Gradient 26 mmHg Estimated PAP/RSVP PA Systolic Pressure 25 mmHg <35 TV Annular TDI TV Lateral Maribel s' Velocity 14 cm/s 10-19 Aorta Name Value Normal Ascending Aorta Ao Root Diameter (MM) 3.7 cm Ao Root Diam Index (MM) 1.8 cm/m2 Aortic Valve Name Value Normal AV 2D/MM AV Cusp Sep (MM) 2.0 cm AV Doppler AV Peak Velocity 1.61 m/s AV Peak Gradient 10 mmHg AV Mean Gradient 5 mmHg AV VTI 33 cm AV Area (Cont Eq VTI) 2.26 cm2 >=2.00 AV Area (Cont Eq Erich) 2.20 cm2 AV DI (VTI) 0.69 AV DI (Erich) 0.67 AV Regurgitation 2D LVOT Area 3.27 cm2 Ventricles Name Value Normal LV Dimensions 2D/MM IVS Diastolic Thickness (2D) 1.1 cm 0.6-1.0 LVID Diastole (2D) 5.4 cm 4.2-5.8 LVPW Diastolic Thickness (2D) 1.1 cm 0.6-1.0 LVID Systole (2D) 3.4 cm 2.5-4.0 LV Mass (2D Cubed) 240 g 88-224 LV Mass Index (2D Cubed) 121 g/m2 49-115 Relative Wall Thickness (2D) 0.42 <=0.42 LV Fractional Shortening/Ejection Fraction 2D/MM LV Diastolic Volume (4C MOD) 84 ml LV Diastolic Volume (2C MOD) 87 ml LV Diastolic Volume (BP MOD) 89 ml 62-150 LV Diastolic Volume Index (BP MOD) 45 ml/m2 34-74 LV Systolic Volume (BP MOD) 33 ml 21-61 LV Systolic Volume Index (BP MOD) 17 ml/m2 11-31 LV Diastolic Length (4C) 7.7 cm LV Systolic Length (4C) 6.6 cm LV Stroke Volume (4C MOD) 52 ml RV Dimensions 2D/MM TAPSE 2.2 cm >=1.7 Atria Name Value Normal LA Dimensions LA Dimension (2D) 4.2 cm 3.0-4.1 LA Dimen Index (2D) 2.1 cm/m2 LA Dimension (MM) 4.6 cm 3.0-4.1 LA Volume (BP MOD) 55 ml LA Volume Index (BP MOD) 28 ml/m2 16-34 Report Signatures Finalized by Grey Ordaz on 04/28/2025 01:08 PM Procedure Note Grey Ordaz MD - 04/28/2025 Summary * The left ventricle is normal in size with normal systolic function andan estimated ejection fraction of 55-60% by visual estimate. Leftventricular wall motion is normal. * The left ventricular diastolic function is normal. * Right ventricle is at the upper limits of normal in size with normal systolic function. * There is mild aortic valve regurgitation. * The pulmonary artery systolic pressure is normal, 25 mmHg. * Agitated saline contrast study at rest and with Valsalva is negativefor a shunt. Patient Info Name: Alexander Holguin Age: 65 years : 1960 Gender: Male Ht: 68 in Wt: 179 lb BSA: 1.99 m2 HR: 43 bpm BP: 139 / 70 mmHg Exam Date: 04/28/2025 9:26 AM Patient Status: I/P Study Site: [facility] Primary Location: [facility] EStudy Info Exam Type: ECHO COMPLETE W BUBBLE STUDY Indications I63.9 - Acute ischemic stroke (HCC) Procedure(s) * A complete 2D, color Doppler, spectral Doppler and M-Modetransthoracic echocardiogram was performed with a Bubble Study. Staff Referring Physician: Nadya Hobbs Ordering Provider: Nadya Hobbs Attending Physician: Nadya Hobbs Infrastructure Consultant: Anushajenn Steve Tahmina Left Ventricle The left ventricle is normal in size. Left ventricular systolic functionis normal with an estimated ejection fraction of 55-60% by visual estimate.The left ventricular mass is normal. Left ventricular segmental wall motionis normal. The left ventricular diastolic function is normal. Right Ventricle The right ventricle is at the upper limits of normal in size. Right ventricular systolic function is normal. Left Atrium The left atrium is normal in size with a left atrial volume index of28 ml/m2 by BP MOD. Right Atrium The right atrium is mildly dilated. Atrial Septum Intact interatrial septum visualized by 2D and color Doppler imaging. Agitated saline contrast study at rest and with Valsalva is negative fora shunt. Aortic Valve The aortic valve is trileaflet. There is no aortic valve stenosis. Thereis mild aortic valve regurgitation. Pulmonic Valve The pulmonic valve is normal. There is no pulmonic valve stenosis. Thereis no pulmonic regurgitation. Mitral Valve The mitral valve is normal. There is no mitral valve stenosis. There isno mitral valve regurgitation. Tricuspid Valve The tricuspid valve is normal. There is trace tricuspid valveregurgitation. The pulmonary artery systolic pressure is normal, 25 mmHg. Inferior Vena Cava The inferior vena cava is normal in size (< 2.1 cm). Pericardium/Pleural There is no pericardial effusion. Aorta The aortic root at the sinus of Valsalva is normal in size. Theascending aorta is normal in size. Measurements Left Ventricular Outflow Tract Name Value Normal LVOT 2D LVOT Diameter 2.0 cm LVOT Area 3.3 cm2 LVOT Doppler LVOT Peak Velocity 1.1 m/s LVOT Peak Gradient 5 mmHg LVOT Mean Velocity 66.85 cm/s LVOT Mean Gradient 2 mmHg LVOT VTI 22.9 cm LVOT VTI/AV VTI Ratio 0.7 LVOT Stroke Volume 75 ml LVOT Stroke Volume Index 38 ml/m2 35-58 LVOT CO 3.2 l/min LVOT CI 1.6 l/min/m2 Pulmonic Valve Name Value Normal PV Doppler PV Peak Velocity 1.1 m/s PV Peak Gradient 5 mmHg Mitral Valve Name Value Normal MV Doppler MV PHT 51 ms MV Area (PHT) 4.31 cm2 4.00-5.00 MV Diastolic Function MV E Peak Velocity 0.8 m/sec MV A Peak Velocity 0.4 m/sec MV E/A 1.8 MV Decel Time (PW) 176 ms MV Annular TDI MV Septal e' Velocity 10 cm/s >=8 MV E/e' (Septal) 8 <=8 MV Lateral e' Velocity 19 cm/s >=10 MV E/e' (Lateral) 4 <=8 MV e' Average 14 cm/s MV E/e' (Average) 6 Tricuspid Valve Name Value Normal TV Regurgitation Doppler TR Peak Velocity 2.5 m/s TR Peak Gradient 26 mmHg Estimated PAP/RSVP PA Systolic Pressure 25 mmHg <35 TV Annular TDI TV Lateral Maribel s' Velocity 14 cm/s 10-19 Aorta Name Value Normal Ascending Aorta Ao Root Diameter (MM) 3.7 cm Ao Root Diam Index (MM) 1.8 cm/m2 Aortic Valve Name Value Normal AV 2D/MM AV Cusp Sep (MM) 2.0 cm AV Doppler AV Peak Velocity 1.61 m/s AV Peak Gradient 10 mmHg AV Mean Gradient 5 mmHg AV VTI 33 cm AV Area (Cont Eq VTI) 2.26 cm2 >=2.00 AV Area (Cont Eq Erich) 2.20 cm2 AV DI (VTI) 0.69 AV DI (Erich) 0.67 AV Regurgitation 2D LVOT Area 3.27 cm2 Ventricles Name Value Normal LV Dimensions 2D/MM IVS Diastolic Thickness (2D) 1.1 cm 0.6-1.0 LVID Diastole (2D) 5.4 cm 4.2-5.8 LVPW Diastolic Thickness (2D) 1.1 cm 0.6-1.0 LVID Systole (2D) 3.4 cm 2.5-4.0 LV Mass (2D Cubed) 240 g 88-224 LV Mass Index (2D Cubed) 121 g/m2 49-115 Relative Wall Thickness (2D) 0.42 <=0.42 LV Fractional Shortening/Ejection Fraction 2D/MM LV Diastolic Volume (4C MOD) 84 ml LV Diastolic Volume (2C MOD) 87 ml LV Diastolic Volume (BP MOD) 89 ml 62-150 LV Diastolic Volume Index (BP MOD) 45 ml/m2 34-74 LV Systolic Volume (BP MOD) 33 ml 21-61 LV Systolic Volume Index (BP MOD) 17 ml/m2 11-31 LV Diastolic Length (4C) 7.7 cm LV Systolic Length (4C) 6.6 cm LV Stroke Volume (4C MOD) 52 ml RV Dimensions 2D/MM TAPSE 2.2 cm >=1.7 Atria Name Value Normal LA Dimensions LA Dimension (2D) 4.2 cm 3.0-4.1 LA Dimen Index (2D) 2.1 cm/m2 LA Dimension (MM) 4.6 cm 3.0-4.1 LA Volume (BP MOD) 55 ml LA Volume Index (BP MOD) 28 ml/m2 16-34 Report Signatures Finalized by Grey Ordaz on 04/28/2025 01:08 PM Nadya Hobbs BATH STEWARD/STEWARDESS-AIR SAW OPERATOR ECHO CUPID Final R esult * EKG 12-LEAD (04/28/2025 9:18 AM HEALTH PROFESSOR) Ventricular Rate 49 BPM [facility] Atrial Rate 49 BPM [facility] P-R Interval 156 ms [facility] QRS Duration ms 104 ms [facility] Q-T Interval ms 494 ms [facility] QTC Calculation (Bezet) 446 ms [facility] Calculated P [place] 76 degrees [facility] Calculated R [place] -7 degrees [facility] Calculated T [place] 5 degrees [facility] Interpretation EKG Atrial-sensed ventricular-p aced rhythm with occasional atrial-paced complexes No previous ECGs available Confirmed by LINDA PAK, GREY CARRERA ([id number]) on 04/28/2025 1:34:44 PM [facility] 04/28/2025 9:18 AM HEALTH PROFESSOR 04/28/2025 1:34 PM HEALTH PROFESSOR Nadya Hobbs BATH STEWARD/STEWARDESS-[facility] ECG ORDERABLES Edited Result - Final [facility] * LIPID PROFILE (04/28/2025 12:21 AM HEALTH PROFESSOR) Cholesterol 181 <200 mg/dL 04/28/2025 12:49 AM HEALTH PROFESSOR [facility] Triglycerides 76 <150 mg/dL 04/28/2025 12:49 AM HEALTH PROFESSOR [facility] HDL Cholesterol 54 >40 mg/dL 12:49 AM HEALTH PROFESSOR [facility] LDL Calculated 112 <130 mg/dL 04/28/2025 12:49 AM HEALTH PROFESSOR [facility] Comment:LDL is calculated us ing the Friedewald equation. VLDL Calculated 15 <=30 mg/dL 12:49 AM HEALTH PROFESSOR [facility] Chol HDL Ratio 3.4 <4.5 04/28/2025 12:49 AM HEALTH PROFESSOR [facility] LDL/HDL Ratio 2.1 <5.0 04/28/2025 12:49 AM HEALTH PROFESSOR [facility] Blood BLOOD SPECIMEN / Unknown Venipuncture / Unknown 04/28/2025 12:21 AM HEALTH PROFESSOR 04/28/2025 12:32 AM HEALTH PROFESSOR Stanton Sutton MD LAB - CHEMISTRY ORDERABLES F inal Result Performing Organization Address [facility] de Phone Number [facility] [id number] [place] [id number] * TROPONIN-I HIGH SENSITIVE REFLEX 1HOUR (04/27/2025 9:39 PM HEALTH PROFESSOR) [facility] Troponin I High Sensitive 11 <=35 ng/L 04/27/2025 10:18 PM HEALTH PROFESSOR [facility] Delta Troponin I HS 2 <6 ng/L 04/27/2025 10:18 PM HEALTH PROFESSOR [facility] Blood BLOOD SPECIMEN / Unknown Venipuncture / Unknown 04/27/2025 9:39 PM HEALTH PROFESSOR 04/27/2025 9:54 PM HEALTH PROFESSOR Stanton Sutton MD LAB - CHEMISTRY ORDERABLES F inal Result Performing Organization Address [facility] de Phone Number [facility] [address] [place] [phone] * HEMOGLOBIN A1C (04/27/2025 9:39 PM HEALTH PROFESSOR) [facility] Hemoglobin A1c 5.4 <5.7 % 04/27/2025 10:27 PM HEALTH PROFESSOR [facility] Estimated Average Glucose 108 mg/dL 04/27/2025 10:27 PM HEALTH PROFESSOR [facility] Blood BLOOD SPECIMEN / Unknown Venipuncture / Unknown 04/27/2025 9:39 PM HEALTH PROFESSOR 04/27/2025 10:19 PM HEALTH PROFESSOR Narrative [facility] - 04/27/2025 10:27 PM HEALTH PROFESSOR HbA1c Interpretation: Normal: < 5.7% Pre-diabetes: 5.7-6.4% Diabetes: Equal to or greater than 6.5% Test results diagnostic of diabetes should be repeated for confirmation. Treatment target values recommended by ADA and other clinical organizations should be used to evaluate metabolic control in patients. This test should not replace glucose testing for patients with Type 1 diabetes, pediatric patients, or women. Falsely low HbA1c results may be observed in patients with clinical conditions that shorten erythrocyte life span or decrease mean erythrocyte age such as the presence of unstable hemoglobin variants, elevated hemoglobin F level or other causes of hemolytic anemia. HbA1c may not accurately reflect glycemic control when clinical conditions that affect erythrocyte survival are present. Severe Iron deficiency anemia may yield falsely high results. Hemoglobin A1c assay should not be used to diagnose or monitor diabetes in patients with malignancy, recent blood transfusion, chronic kidney or liver disease. This method may yield falsely low results when hemoglobin (HbF) exceeds 5% in the specimen. The Thorne Alinity assay for the measurement of HbA1c is a National Glycohemoglobin Standardization Program (NGSP) certified method. us Stanton Sutton MD LAB - CHEMISTRY ORDERABLES F inal Result [facility] [address] [place] [address] * (ABNORMAL) CBC W AUTO DIFFERENTIAL (04/27/2025 9:39 PM HEALTH PROFESSOR) [facility] WBC 10.2 4.0 - 10.7 x10E9/L 04/28/2025 12:07 PM HEALTH PROFESSOR [facility] RBC Count 4.94 4.30 - 5.80 x10E12/L 04/28/2025 12:07 PM HEALTH PROFESSOR [facility] Hemoglobin 14.9 13.3 - 17.5 g/dL 04/28/2025 12:07 PM HEALTH PROFESSOR [facility] Hematocrit 43.5 38.7 - 51.1 % 04/28/2025 12:07 PM [facility] MCV 88.1 80.0 - 98.0 fL 04/28/2025 12:07 PM HEALTH PROFESSOR [facility] MCH 30.2 26.7 - 33.6 pg 04/28/2025 12:07 PM HEALTH PROFESSOR [facility] MCHC 34.3 31.7 - 36.3 g/dL 04/28/2025 12:07 PM [facility] RDW-CV 12.3 11.3 - 14.8 % 04/28/2025 12:07 PM HEALTH PROFESSOR [facility] Platelet Count 204 150 - 420 x10E9/L 04/28/2025 12:07 PM [facility] MPV 10.9 7.8 - 11.4 fL 04/28/2025 12:07 PM HEALTH PROFESSOR [facility] Neutrophil % 73.8 41.0 - 74.0 % 04/28/2025 12:07 PM HEALTH PROFESSOR [facility] Lymphocyte % 14.8(L) 17.0 - 47.0 % 04/28/2025 12:07 PM [facility] Monocyte % 10.1 3.0 - 11.0 % 04/28/2025 12:07 PM [facility] Eosinophil % 0.3 0.0 - 7.0 % 04/28/2025 12:07 PM HEALTH PROFESSOR [facility] Basophil % 0.5 0.0 - 1.6 % 04/28/2025 12:07 PM [facility] Immature Granulocytes % 0.5 0.0 - 1.0 % 04/28/2025 12:07 PM [facility] Neutrophil Absolute 7.56(H) 1.60 - 7.50 x10E9/L 04/28/2025 12:07 PM [facility] Lymphocyte Absolute 1.52 1.00 - 4.40 x10E9/L 04/28/2025 12:07 PM HEALTH PROFESSOR [facility] Monocyte Absolute 1.03(H) 0.15 - 1.00 x10E9/L 04/28/2025 12:07 PM [facility] Eosinophil Absolute 0.03 0.00 - 0.60 x10E9/L 04/28/2025 12:07 PM [facility] Basophil Absolute 0.05 0.00 - 0.13 x10E9/L 04/28/2025 12:07 PM [facility] Blood BLOOD SPECIMEN / Unknown Venipuncture / Unknown 04/27/2025 9:39 PM HEALTH PROFESSOR 04/27/2025 10:19 PM HEALTH PROFESSOR us Nadya Hobbs BATH STEWARD/STEWARDESS-AIR SAW OPERATOR LAB - HEMATOLOGY ORDERA BLES Final Result [facility] [address] [place] [address] * TROPONIN-I HIGH SENSITIVE BASELINE + 1HR (04/27/2025 8:15 PM HEALTH PROFESSOR) Troponin I High Sensitive 9 <=35 ng/L 04/27/2025 9:02 PM HEALTH PROFESSOR [facility] Blood BLOOD SPECIMEN / Unknown Venipuncture / Unknown 04/27/2025 8:15 PM HEALTH PROFESSOR 04/27/2025 8:36 PM HEALTH PROFESSOR us Stanton Sutton MD LAB - CHEMISTRY ORDERABLES F inal Result [facility] [address] [place] [address] from Last 3 Months Insurance [facility] Advance Directives * Full Code (Latest Code Status on File) Date Activated Date Inactivated Comments 04/29/2025 6:41 PM 05/04/2025 12:28 AM Care Teams Color Room Attendant Relationship Specialty Start Date End Date David Gaming [address] [place] [id number] PCP - General 04/28/25
--- OUTSIDE RECORDS SUMMARY | 2025-05-13 16:52 | XMS_ITS | Clinical Summary ---
Author Organization [facility] Address [address] [place] [address] Phone Care Team Providers Care Cpr Instructor Name Role Phone MekhiDavid Sara LIANG Primary Care Provider Allergies No known active allergies Medications lisinopril-hydroC HLOROthiazide (PRINZIDE, ZESTORETIC) 10-12.5 MG TabletIndications :Primary hypertension TAKE 1 TABLET BY MOUTH EVERY DAY 90 Tablet 1 12/09/2023 Active Active Problems No known active problems Encounters Date Type Department Care Team Description 04/27/2025 4:58 PM FLOOR COVERING INSTALLER - 04/27/2025 6:47 PM FLOOR COVERING INSTALLER Emergency [facility] [address] [place] [address] Carlos Alberto Thornton DO Acute ischemic right MCA stroke Discharge Disposition: Short Term Hospital for Inpt Care 04/27/2025 Travel from Last 3 Months Immunizations Immunization Administration Dates Next Due Pneumococcal conjugate PCV20 , polysaccharide ZOT626 conjugate, adjuvant, PF 06/05/2023 Social History Tobacco Use Types Packs/Day Years Used Date Smoking Tobacco: Every Day Cigarettes Smokeless Tobacco: Never Tobacco Cessation:Ready to Q uit: Not Asked; Counseling Given: Not Answered Alcohol Use Standard Drinks/Week Comments Yes 0 (1 standard drink = 0.6 oz pur e alcohol) every day 4-5 beers Sexually Active Control Partners Comments Not Currently Sex and Gender Information Value Date Recorded Sex Assigned at Not on file Legal Sex Male 3:41 PM FLOOR COVERING INSTALLER Gender Identity Not on file Sexual Orientation Not on file Last Filed Vital Signs Vital Sign Reading Time Taken Comments Blood Pressure 145/87 04/27/2025 6:30 PM FLOOR COVERING INSTALLER Pulse 46 04/27/2025 6:30 PM FLOOR COVERING INSTALLER Temperature 36.9 C (98.5 F) 04/27/2025 5:37 PM FLOOR COVERING INSTALLER Respiratory Rate 17 04/27/2025 6:30 PM FLOOR COVERING INSTALLER Oxygen Saturation 100% 04/27/2025 6:30 PM FLOOR COVERING INSTALLER Inhaled Oxygen Concentration - - Weight 64.9 kg (143 lb 1.3 oz) 04/27/2025 5:37 P M FLOOR COVERING INSTALLER Height 172.7 cm (5' 8) 04/27/2025 5:37 PM FLOOR COVERING INSTALLER Body Mass Index 21.76 04/27/2025 5:37 PM FLOOR COVERING INSTALLER Plan of Treatment Health Maintenance Due Date Last Done Comments Hepatitis C Virus (HCV) Screening 1960 TdaP Immunization 1960 Cologuard 2006 Colonoscopy 2006 Colorectal Cancer Screening 2006 Immunochemical Fecal Occult Blood 2006 Zoster Immunization (1 of 2) 2011 Influenza Immunization (#1) 2025 SARS-COV-2 Immunization ( - season) 2025 Respiratory Syncytial Virus (RSV) Immunization (Adult) (1 - 1-dose 75+ series) 2036 PSA Discussion Completed 12/04/2022 Pneumococcal Immunization (5 0+ years) Completed 06/05/2023 Pneumococcal Immunization Combined Discontinued 2022 Hepatitis B Immunization Aged Out No longer eligible based on patient's age to complete this topic Human Papillomavirus (HPV) Immunization Aged Out No longer eligible b ased on patient's age to complete this topic Meningococcal Immunization (ACWY) Aged Out No longer eligible based on patient's age to complete this topic Rotavirus Immunization Aged Out No lo nger eligible based on patient's age to complete this topic Procedures Procedure Name Priority Date/Time Associated Diagnosis Comments CBC WITH AUTO DIFFERENTIAL STAT 04/27/2025 5:30 PM FLOOR COVERING INSTALLER CREATINE KINASE (CK) TOTAL STAT 04/27/2025 5:30 PM FLOOR COVERING INSTALLER CMP (COMPREHENSIVE METABOLIC PANEL) STAT 04/27/2025 5:30 PM FLOOR COVERING INSTALLER TROPONIN I, HIGH SENSITIVITY (HSTRP) STAT 04/27/2025 5:30 PM FLOOR COVERING INSTALLER PROTIME (PT) (PROTHROMBIN TIME) STAT 04/27/2025 5:30 PM FLOOR COVERING INSTALLER APTT (PTT) STAT 04/27/2025 5:30 PM FLOOR COVERING INSTALLER COMPLETE BLOOD COUNT (CBC) WITH DIFF STAT 04/27/2025 5:30 PM FLOOR COVERING INSTALLER EKG 12 LEAD STAT 04/27/2025 5:22 PM FLOOR COVERING INSTALLER CTA STROKE HEAD AND NECK Stat with Interpretation 04/27/2025 5:21 [address]OVERING INSTALLER [address] STROKE HEAD WO CONTRAST Stat with Interpretation 04/27/2025 5:05 PM FLOOR COVERING INSTALLER CRITICAL CARE Routine 04/27/2025 5:00 PM FLOOR COVERING INSTALLER POCT GLUCOSE STAT 04/27/2025 4:59 PM FLOOR COVERING INSTALLER EKG SCAN 04/27/2025 12:00 [address] COVERING INSTALLER CT - HEAD/NECK 04/27/2025 12:00 AM F[address]OR COVERING INSTALLER CT - HEAD/NECK 04/27/2025 12:00 AM FLOOR COVERING INSTALLER PSA SCREEN Today 12/04/2022 2:32 PM CDT Prostate cancer screening from Last 3 Months or Most Recently Relevant to Health Maintenance Results * TROPONIN I, HIGH SENSITIVITY (HSTRP) (04/27/2025 5:30 PM FLOOR COVERING INSTALLER) TROPONIN I, HIGH SENSITIVITY- [place] 11.1 <=35.0 ng/L 04/27/2025 6:03 PM FLOOR COVERING INSTALLER [facility] Comment: High-sensitivity troponin I results are reported in ng/L making the result appear to be 1,000 times higher than the contemporary troponin I value which is reported in ng/ml. Results from [place]. Blood Venipuncture / Unknown 04/27/2025 5:30 PM FLOOR COVERING INSTALLER 04/27/2025 5:39 PM FLOOR COVERING INSTALLER us Carlos Alberto Thornton DO CHEMISTRY ORDERABLES Fi nal Result [facility] [place] [address] * (ABNORMAL) CBC with Auto Differential (04/27/2025 5:30 PM FLOOR COVERING INSTALLER) WBC 9.75 4.00 - 12.00 10(3)/mcL 04/27/2025 5:41 PM FLOOR COVERING INSTALLER [facility] RBC 4.83 4.40 - 5.80 10(6)/mcL 04/27/2025 5:41 PM FLOOR COVERING INSTALLER [facility] HEMOGLOBIN (HGB) 14.9 13.0 - 16.5 g/dL 04/27/2025 5:41 PM FLOOR COVERING INSTALLER [facility] HEMATOCRIT (HCT) 43.8 38.0 - 50.0 % 04/27/2025 5:41 PM FLOOR COVERING INSTALLER [facility] MCV 90.7 82.0 - 96.0 fL 04/27/2025 5:41 PM FLOOR COVERING INSTALLER [facility] MCH 30.8 26.0 - 32.0 pg 04/27/2025 5:41 PM FLOOR COVERING INSTALLER [facility] MCHC 34.0 31.0 - 36.0 g/dL 04/27/2025 5:41 PM FLOOR COVERING INSTALLER [facility] PLATELET COUNT 202 140 - 440 10(3)/mcL 04/27/2025 5:41 PM FLOOR COVERING INSTALLER [facility] RDW 12.4 11.8 - 15.5 % 04/27/2025 5:41 PM FLOOR COVERING INSTALLER [facility] MPV 9.6 8.0 - 12.6 fL 04/27/2025 5:41 PM FLOOR COVERING INSTALLER [facility] NEUTROPHILS 79.7(H) 40.0 - 68.0 % 04/27/2025 5:41 PM FLOOR COVERING INSTALLER [facility] LYMPHOCYTES 10.9(L) 19.0 - 49.0 % 04/27/2025 5:41 PM FLOOR COVERING INSTALLER [facility] MONOCYTES 8.5 3.0 - 13.0 % 04/27/2025 5:41 PM FLOOR COVERING INSTALLER [facility] EOSINOPHILS 0.1 0.0 - 8.0 % 04/27/2025 5:41 PM FLOOR COVERING INSTALLER [facility] BASOPHILS 0.4 0.0 - 1.0 % 04/27/2025 5:41 PM FLOOR COVERING INSTALLER [facility] IMMATURE GRANULOCYTE 0.4 0.0 - 0.4 % 04/27/2025 5:41 PM FLOOR COVERING INSTALLER [facility] ABSOLUTE NEUTROPHILS 7.77(H) 1.40 - 5.30 10(3)/[facility] 04/27/2025 5:41 PM [facility] ABSOLUTE LYMPHOCYTES 1.06 0.90 - 3.30 10(3)/[facility] 04/27/2025 5:41 PM [facility] ABSOLUTE MONOCYTES 0.83 0.10 - 0.90 10(3)/[facility] 04/27/2025 5:41 PM FLOOR COVERING INSTALLER [facility] ABSOLUTE EOSINOPHIL 0.01 0.00 - 0.50 10(3)/[facility] 04/27/2025 5:41 PM [facility] ABSOLUTE BASOPHILS 0.04 0.00 - 0.10 10(3)/[facility] 04/27/2025 5:41 PM [facility] ABSOLUTE IMMATURE GRANULOCYTE 0.04(H) 0.00 - 0.03 10 (3) [facility]. 04/27/2025 5:41 PM [facility] NRBC PER 100 WBC 0 04/27/20 5:41 PM [facility] Blood Venipuncture / Unknown 04/27/2025 5:30 PM FLOOR COVERING INSTALLER 04/27/2025 5:39 PM [facility] us Carlos Alberto Thornton DO HEMATOLOGY ORDERABLES F inal Result [facility] [place] [address] * APTT (PTT) (04/27/2025 5:30 PM FLOOR COVERING INSTALLER) PTT 26 24 - 36 sec 04/27/2025 6:03 PM FLOOR COVERING INSTALLER [facility] Blood Venipuncture / Unknown 04/27/2025 5:30 PM FLOOR COVERING INSTALLER 04/27/2025 5:39 PM FLOOR COVERING INSTALLER Narrative [facility] - 04/27/2025 6:03 PM FLOOR COVERING INSTALLER Therapeutic range for unfractionated heparin at 0.3-0.7 U/mL is an aPTT value in the range of 71-100 seconds. Critical value for the PTT test is >= 122 seconds. Carlos Alberto Thornton DO HEMATOLOGY ORDERABLES F inal Result Performing Organization Address [facility] Co de Phone Number [facility] [place] [address] * PT (PROTHROMBIN TIME) (04/27/2025 5:30 PM FLOOR COVERING INSTALLER) PROTIME-PATIENT 14.3 11.6 - 14.8 sec 04/27/2025 6:03 PM FLOOR COVERING INSTALLER [facility] INR 1.1 0.9 - 1.2 04/27/2025 6:03 PM FLOOR COVERING INSTALLER [facility] Comment: Therapeutic Ranges INR = 2.0-3.0: Venous thromb, atrial fib, pul embolism, tissue heart valve, ami. INR = 2.5-3.5: Mechanical heart valve Critical value for INR is >/= 4.5 Blood Venipuncture / Unknown 04/27/2025 5:30 PM FLOOR COVERING INSTALLER 04/27/2025 5:39 PM FLOOR COVERING INSTALLER Carlos Alberto Thornton DO HEMATOLOGY ORDERABLES F inal Result Performing Organization Address [facility] Co de Phone Number [facility] [place] [address] * (ABNORMAL) Creatine Kinase (CK) Total (04/27/2025 5:30 PM FLOOR COVERING INSTALLER) CK (CPK) 278(H) 30 - 200 U/L 04/27/2025 6:01 PM [facility] Blood Venipuncture / Unknown 04/27/2025 5:30 PM FLOOR COVERING INSTALLER 04/27/2025 5:39 PM FLOOR COVERING INSTALLER us Carlos Alberto Thornton DO CHEMISTRY ORDERABLES Fi nal Result [facility] [place] [address] * (ABNORMAL) Comprehensive Metabolic Panel (Cmp) [id number] (04/27/2025 5:30 PM FLOOR COVERING INSTALLER) Pathologist [facility] SODIUM 138 136 - 145 mmol/L 04/27/2025 6:01 PM [facility] POTASSIUM 4.2 3.5 - 5.1 mmol/L 04/27/2025 6:01 PM [facility] CHLORIDE 105 98 - 107 mmol/L 04/27/2025 6:01 PM [facility] CO2, VENOUS 24 22 - 30 mmol/L 04/27/2025 6:01 PM [facility] ANION GAP 13.2 <18.0 mmol/L 04/27/2025 6:01 PM [facility] GLUCOSE 98 70 - 99 mg/dL 04/27/2025 6:01 PM [facility] BUN 9 8 - 26 mg/dL 04/27/2025 6:01 PM [facility] CREATININE, BLOOD 0.74 0.70 - 1.30 mg/dL 04/27/2025 6:01 PM [facility] BUN/CREATININE RATIO 12 12 - 20 ratio 04/27/2025 6:01 PM [facility] TOTAL PROTEIN 5.9(L) 6.0 - 8.0 g/dL 04/27/2025 6:01 PM [facility] ALBUMIN 3.8 3.5 - 5.0 g/dL 04/27/2025 6:01 PM [facility] A/G RATIO 1.8 1.0 - 2.2 04/27/2025 6:01 PM [facility] CALCIUM 8.9 8.7 - 10.5 mg/dL 04/27/2025 6:01 PM [facility] T BILI 0.7 0.2 - 1.2 mg/dL 04/27/2025 6:01 PM [facility] SGOT (AST) 27 <43 U/L 04/27/2025 6:01 PM [facility] SGPT (ALT) 15 <56 U/L 04/27/2025 6:01 PM [facility] ALKALINE PHOSPHATASE 65 40 - 150 U/L 04/27/2025 6:01 PM [facility] GFR, ESTIMATED >60 >=60 04/27/2025 6:01 PM [facility] Comment: Creatinine Clearance is the preferred criteria for selecting drug dose adjustments in renally impaired patients. The GFR is provided as additional pertinent clinical information. GFR is reported in mL/min/1.73 sq m. Calculation based on the 2020 Chronic Kidney Disease Epidemiology Collaboration (CKD-EPI) equation refit without adjustment for race. GFR, EST. >60 >=60 6:01 PM [facility] Comment: Creatinine Clearance is the preferred criteria for selecting drug dose adjustments in renally impaired patients. The GFR is provided as additional pertinent clinical information. GFR is reported in mL/min/1.73 sq m. Calculation based on the 2009 Chronic Kidney Disease Epidemiology Collaboration (CKD-EPI). GFR, EST. NONAFRICAN >60 >=60 04/27/2025 6:01 PM [facility] Comment: Creatinine Clearance is the preferred criteria for selecting drug dose adjustments in renally impaired patients. The GFR is provided as additional pertinent clinical information. GFR is reported in mL/min/1.73 sq m. Calculation based on the 2009 Chronic Kidney Disease Epidemiology Collaboration (CKD-EPI). Blood Venipuncture / Unknown 04/27/2025 5:30 PM FLOOR COVERING INSTALLER 04/27/2025 5:39 PM FLOOR COVERING INSTALLER us Carlos Alberto Thornton DO CHEMISTRY ORDERABLES Fi nal Result Performing Organization Address [facility] Co de Phone Number [facility] [place] [address] * EKG 12 LEAD (04/27/2025 5:22 PM FLOOR COVERING INSTALLER) Ventricular Rate 50 BPM EXTERNAL EKG Atrial Rate 50 BPM EXTERNAL EKG P-R Interval 168 ms EXTERNAL EKG QRS Duration 96 ms EXTERNAL EKG Q-T Duration 486 ms EXTERNAL EKG QTC CALCULATION 443 ms EXTERNAL EKG P [place] 82 degrees EXTERNAL EKG R [place] 55 degrees EXTERNAL EKG T [place] 32 degrees EXTERNAL EKG 04/27/2025 5:22 PM FLOOR COVERING INSTALLER Impressions EXTERNAL EKG - 04/29/2025 8:10 PM FLOOR COVERING INSTALLER Sinus bradycardia Possible Left atrial enlargement Left ventricular hypertrophy ( Sokolow-Silva , [place] product , Romhilt-Walton ) Abnormal ECG No previous ECGs available Confirmed by GURVINDER GARCIA ([id number]) on 04/29/2025 8:10:11 PM Narrative Procedure Note Gurvinder Garcia MD - 04/29/2025 IMPRESSION: Sinus bradycardia Possible Left atrial enlargement Left ventricular hypertrophy ( Sokolow-Silva , [place] product ,Romhilt-Walton ) Abnormal ECG No previous ECGs available Confirmed by GURVINDER GARCIA ([id number]) on 04/29/2025 8:10:11 PM us Carlos Alberto Thornton DO IMG ECG ORDERABLES Angela l Result Performing Organization Address City/[facility]/ZIP Co de Phone Number EXTERNAL EKG * CTA STROKE HEAD AND NECK (04/27/2025 5:21 PM FLOOR COVERING INSTALLER) Anatomical Region Laterality Modality vascular N/A Computed Tomogra phy 04/27/2025 5:21 PM FLOOR COVERING INSTALLER Impressions 04/29/2025 2:49 PM FLOOR COVERING INSTALLER IMPRESSION: 1. Complete occlusion of the right right middle cerebral artery M1 segment. 2. Moderate stenosis of the right internal carotid artery origin. 3. Severe stenosis of the left vertebral artery V4 segment. Moderate stenosis of the left vertebral artery origin. 4. 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 The preliminary report and any related communication were provided by [facility] After Hours service, as documented in the medical record. Narrative 04/29/2025 2:49 PM FLOOR COVERING INSTALLER DICTATING PHYSICIAN: Stiven Whitley M.D., [facility] EXAM: CTA STROKE HEAD AND NECK 04/27/2025 5:21 PM Patient : 1960 Age: 65 years Gender: Male NUMBER OF IMAGES: [id number] INDICATION: Neuro deficit, acute, stroke suspected, LKN 2000 yesterday. C/o left paralysis 0700 today COMPARISON: None Technique: Low-dose CT acquisition technique included one of following options; 1 . Automated exposure control, 2. Adjustment of MA and or KV according to patient's size or 3. Use of iterative reconstruction. Contiguous spiral images were obtained in the axial plane, following the administration of intravenous contrast using CT angiographic protocol. Sagittal and coronal images were reconstructed from the axial plane acquisition. Additional MIP reconstructions were presented to aid in the interpretation of this study. Images were obtained from the vertex of the head to the aortic arch. A total of 100 mL of Isovue-370 intravenous contrast was utilized. FINDINGS: A normal 3 vessel takeoff of the aorta is seen. 60% stenosis at the origin of the right internal carotid artery. A 0.6 cm flap is seen within the anterior aspect of the common carotid artery at the bifurcation. This is thought to represent a short segment dissection (series 301, image 364). Less than 50% stenosis at the origin of the left internal carotid artery. The anterior cerebral arteries are unremarkable. The anterior communicating artery is visualized. Complete occlusion of the right middle cerebral artery M1 segment. Reconstitution of the M2, M3 and M4 branches, beginning at the right sylvian fissure. origin of the right posterior cerebral artery. The left posterior communicating artery is visualized. The right vertebral artery is unremarkable. Severe narrowing of the left vertebral artery V4 segment. 50% stenosis of the left vertebral artery origin. The basilar artery is unremarkable. Procedure Note Stiven Carmichael MD - 04/29/2025 DICTATING PHYSICIAN: Stiven Whitley M.D., [facility] EXAM: CTA STROKE HEAD AND NECK 04/27/2025 5:21 PM Patient : 1960 Age: 65 years Gender: Male NUMBER OF IMAGES: 1630 INDICATION: Neuro deficit, acute, stroke suspected, LKN 1999 yesterday.C/o left paralysis 0700 today COMPARISON: None Technique: Low-dose CT acquisition technique included one of followingoptions; 1 . Automated exposure control, 2. Adjustment of MA and or KVaccording to patient's size or 3. Use of iterative reconstruction. Contiguous spiral images were obtained in the axial plane, following theadministration of intravenous contrast using CT angiographic protocol.Sagittal and coronal images were reconstructed from the axial planeacquisition. Additional MIP reconstructions were presented to aid in theinterpretation of this study. Images were obtained from the vertex of thehead to the aortic arch. A total of 100 mL of Isovue-370 intravenouscontrast was utilized. FINDINGS: A normal 3 vessel takeoff of the aorta is seen. 60% stenosis at the origin of the right internal carotid artery. A 0.6 cm flap is seen within the anterior aspect of the common carotidartery at the bifurcation. This is thought to represent a short segmentdissection (series 301, image 364). Less than 50% stenosis at the originof the left internal carotid artery. The anterior cerebral arteries are unremarkable. The anterior communicating artery is visualized. Complete occlusion of the right middle cerebral artery M1 segment.Reconstitution of the M2, M3 and M4 branches, beginning at the rightsylvian fissure. origin of the right posterior cerebral artery. The left posterior communicating artery is visualized. The right vertebral artery is unremarkable. Severe narrowing of the left vertebral artery V4 segment. 50% stenosis ofthe left vertebral artery origin. The basilar artery is unremarkable. IMPRESSION: 1. Complete occlusion of the right right middle cerebral artery [id number]. 2. Moderate stenosis of the right internal carotid artery origin. 3. Severe stenosis of the left vertebral artery V4 segment. Moderatestenosis of the left vertebral artery origin. 4. Short segment dissection of the left common carotid artery at thebifurcation. The preliminary report and any related communication [facility], as documented in the medical record. us Carlos Alberto Thornton DO IMG CT ORDERABLES Final Result * CT STROKE HEAD WO CONTRAST (04/27/2025 5:05 PM FLOOR COVERING INSTALLER) Anatomical Region Laterality Modality Head N/A Computed Tomogra phy 04/27/2025 5:05 PM FLOOR COVERING INSTALLER Impressions 04/29/2025 2:38 PM FLOOR COVERING INSTALLER IMPRESSION: Subacute right MCA territory infarction. The preliminary report and any related communication were provided by [facility]'s After Hours service, as documented in the medical record. Narrative 04/29/2025 2:38 PM FLOOR COVERING INSTALLER DICTATING PHYSICIAN: Stiven Whitley M.D., [facility] EXAM: CT STROKE HEAD WO CONTRAST 04/27/2025 5:05 PM Patient : 1960 Age: 65 years Gender: Male NUMBER OF IMAGES: [id number] INDICATION: Neuro deficit, acute, stroke suspected, LKN @ 2000hrs last night. LT side paralysis upon waking this morning at 0700hrs. HX of HTN. COMPARISON: None Technique: Axial CT of the head was performed from the base of the skull through the vertex of the head. Low-dose CT acquisition technique included one of following options; 1 . Automated exposure control, 2. Adjustment of MA and or KV according to patient's size or 3. Use of iterative reconstruction. Multiple CT sections were obtained with sagittal and coronal MPR reconstructions. FINDINGS: Hyperdense thrombus is seen in the M1, M2 and M3 branches of the right middle cerebral artery. Extensive hypoattenuation with loss of robretson-white matter differentiation and sulcal effacement is seen within the right MCA territory. No definitive volume loss. Mass effect with mild right lateral ventricle sulcal effacement. Diffuse parenchymal volume loss, expected for the patient's age. No intracranial hemorrhage or subdural fluid collection. Gaze deviated to the right. Procedure Note Stiven Carmichael MD - 04/29/2025 DICTATING PHYSICIAN: Stiven Whitley M.D., [facility] EXAM: CT STROKE HEAD WO CONTRAST 04/27/2025 5:05 PM Patient : 1960 Age: 65 years Gender: Male NUMBER OF IMAGES: [id number] INDICATION: Neuro deficit, acute, stroke suspected, LKN @ 2000hrs lastnight. LT side paralysis upon waking this morning at 0700hrs. HX of HTN. COMPARISON: None Technique: Axial CT of the head was performed from the base of the skullthrough the vertex of the head. Low-dose CT acquisition technique included one of following options; 1 .Automated exposure control, 2. Adjustment of MA and or KV according topatient's size or 3. Use of iterative reconstruction. Multiple CT sectionswere obtained with sagittal and coronal MPR reconstructions. FINDINGS: Hyperdense thrombus is seen in the M1, M2 and M3 branches of the rightmiddle cerebral artery. Extensive hypoattenuation with loss of robertson-whitematter differentiation and sulcal effacement is seen within the right MCAterritory. No definitive volume loss. Mass effect with mild rightlateral ventricle sulcal effacement. Diffuse parenchymal volume loss, expected for the patient's age. Nointracranial hemorrhage or subdural fluid collection. Gaze deviated tothe right. IMPRESSION: Subacute right MCA territory infarction. The preliminary report and any related communication were provided by[facility] After Hours service, as documented in the medical record. us Carlos Alberto Thornton DO IMG CT ORDERABLES Final Result * Critical Care (04/27/2025 5:00 PM FLOOR COVERING INSTALLER) Narrative Carlos Alberto Thornton DO - 04/27/2025 5:00 PM FLOOR COVERING INSTALLER Carlos Alberto Thornton DO 04/27/2025 5:58 PM Critical Care Performed by: Cralos Alberto Thornton DO Authorized by: Carlos Alberto Thornton DO Critical care provider statement: Critical care time (minutes): 35 us Carlos Alberto Thornton DO PROCEDURE/MINOR SURGICA L ORDERABLES Final Result * (ABNORMAL) POCT Glucose (04/27/2025 4:59 PM FLOOR COVERING INSTALLER) GLUCOSE,BEDSID E POCT 114(H) 70 - 99 mg/dL 04/27/2025 5:00 PM FLOOR COVERING INSTALLER [facility] Blood 04/27/2025 4:59 PM FLOOR COVERING INSTALLER 04/27/2025 5:00 PM FLOOR COVERING INSTALLER us None Provider POINT OF CARE TESTING Final Resu lt Performing Organization Address [facility] Co de Phone Number [facility] [facility] [place] [address] * EKG SCAN (04/27/2025 12:00 AM FLOOR COVERING INSTALLER) 04/27/2025 us Provider Scan IMG ECG ORDERABLES Final Result Performing Organization Address [facility] de Phone Number RESULTING AGENCY * CT - HEAD/NECK (04/27/2025 12:00 AM FLOOR COVERING INSTALLER) Only the most recent of2 resultswithin the time period is included. 04/27/2025 us Provider Scan IMG CT ORDERABLES Final Result Performing Organization Address [facility] de Phone Number SCAN * PSA SCREEN (12/04/2022 2:32 PM CDT) PSA SCREEN, TOTAL 0.86 <=4.00 ng/mL 12/04/2022 3:45 PM CDT [facility] Blood Venipuncture / Unknown 12/04/2022 2:32 PM CDT 12/04/2022 2:32 PM CDT us David Gaming PAC CHEMISTRY ORDERABLES Final R esult Performing Organization Address [facility] de Phone Number [facility] [place] [address] from Last 3 Months or Most Recently Relevant to Health Maintenance Insurance [employer] Care Teams Cpr Instructor Relationship Specialty Start Date End Date David Gaming, PAC [address] [place] [phone] PCP - General Physician Market Master 12/04/22
== END 2025-05-13 16:50 | disposition home or self-care (01) ==
LOC: ANHIMG 16:50
PROVIDERS: PCP Physician Assistant; Visit Provider Internal Medicine
DX: Z09 Encounter for follow-up examination after completed treatment for conditions other than malignant neoplasm (principal); R93.0 Abnormal findings on diagnostic imaging of skull and head, not elsewhere classified
CPT/HCPCS: 70450